=== PATIENT | male | born 1990 | race Caucasian/White ===

== ENCOUNTER 2016-11-15 12:29 | Emergency (ER) | payer OTHER ==
[~2016-11-15] VITALS: Ht 170.2 cm; Wt 81.6 kg
[2016-11-15] MEDS ORDERED: NAPR500T PO (12:57)
[2016-11-15] MEDS ORDERED: VALI5TAB PO (12:59)
[2016-11-15] MEDS ORDERED: diazePAM 5 MG TAB PO ONE (13:00)
[2016-11-15] MEDS ORDERED: KETOROLAC 60 MG/2 ML VIAL (J1885) IM ONE (13:00)
[2016-11-15 13:25] VITALS: BP 123/73
== END 2016-11-15 13:26 | disposition home or self-care (01) ==
LOC: M ED 12:29
DX: M45.4 Ankylosing spondylitis of thoracic region (principal)
CPT/HCPCS: 96372; 99282; J1885